=== PATIENT | male | born 1995 | race Asian ===

== ENCOUNTER → 2017-01-28 | Outpatient (CLI) | payer OTHER | LOC: BMCIMAGING 12:53 | PROVIDERS: ATTEND Emergency Medicine | DX: J18.9 Pneumonia, unspecified organism (principal) ==

== ENCOUNTER → 2017-02-09 | Outpatient (CLI) | payer OTHER | LOC: BMCIMAGING 09:05 | PROVIDERS: ATTEND Internal Medicine | DX: Z09 Encounter for follow-up examination after completed treatment for conditions other than malignant neoplasm (principal); J18.9 Pneumonia, unspecified organism ==

== ENCOUNTER 2017-02-12 16:10 | Emergency (ER) | payer OTHER ==
--- NOTE | 2017-02-12 17:14 | EDPHY ---
H & P Time Seen by Provider: 02/12/17 16:47 HPI/ROS: CHIEF COMPLAINT: Pneumonia HISTORY OF PRESENT ILLNESS: This patient is a 21 year old male complaining of fatigue and shortness of breath. Three weeks ago, he was diagnosed with pneumonia by x-ray. He took a 7 day course of amoxicillin beginning 01/24/17, and felt better last week. 3 days ago, he had a follow up x-ray which showed improvement. 2 days ago, he felt more fatigued again and developed chills, fever, and worsening cough, with accompanying shortness of breath and dizziness. Today, he visited his primary care physician and obtained a prescription for Levaquin. He took the first dose today. He presents this evening concerned regarding persistent fatigue, shortness of breath, and lightheadedness. The shortness of breath occurs during the episodes of coughing. He does not otherwise feel short of breath. he is feeling quite anxious regarding his symptoms and is concerned that he is not getting better. No nausea, vomiting, or other associated symptoms. REVIEW OF SYSTEMS: Constitutional: Fever, no chills Eyes: No visual changes ENT: No sore throat Respiratory: Cough, shortness of breath Cardiac: No chest pain Gastrointestinal: No nausea, no vomiting, no abdominal pain Genitourinary: No hematuria, no dysuria Musculoskeletal: No leg pain or swelling Skin: No rash Neurological: No headache, no numbness, no weakness Psychiatric: No depression Past Medical/Surgical History: 1. Pneumonia 2. Hernia repair. Social History: Lives in [place]. Originally from [place]. Nonsmoker. Host family at bedside. Smoking Status: Never smoked Physical Exam: General Appearance: Alert, anxious Eyes: Pupils equal and round, no conjunctival pallor or injection ENT, Mouth: Mucous membranes moist Neck: Normal inspection Respiratory: normal respiratory rate, becomes tachypneic occasionally, lungs are clear to auscultation Cardiovascular: Regular rate and rhythm Gastrointestinal: Abdomen is soft and nontender Neurological: A&O, nonfocal, normal gait Skin: Warm and dry, no rash Extremities: Nontender, no pedal edema Psychiatric: anxious Constitutional: Initial Vital Signs Temperature (C) 36.9 C 02/12/17 16:14 Heart Rate 89 02/12/17 16:14 Respiratory Rate 18 02/12/17 16:14 Blood Pressure 145/83 H 07/17/17 16:14 O2 Sat (%) 98 02/12/17 16:14 O2 Delivery Mode Room Air Allergies/Adverse Reactions: No Known Allergies Allergy (Verified 02/12/17 16:14) Home Medications: Medication Instructions Recorded NK [No Known Home Meds] 01/20/16 Medical Decision Making - Diagnostics EKG Interpretation: EKG interpreted by me reveals normal sinus rhythm, rate 63, early repolarization pattern. Imaging: I viewed and interpreted images myself ED Course/Re-evaluation: This patient presents with recurrent fever and worsening cough after recent diagnosis of pneumonia. Vital signs are normal, including oxygen saturation of 96% on room air. Labs and chest x-ray from earlier today reviewed. Infiltrate is still present, though improved from previous chest x-ray. Levaquin was started today. He also has significant anxiety surrounding the frequent cough and feeling that he is short of breath when he coughs. Ativan 0.5 mg IV given for anxiety. He felt much better after medication. His host family requests a prescription for Ativan for anxiety, as he is frequently anxious. Plan to discharge home in good condition. He will continue his Levaquin, and take ibuprofen or Tylenol as needed for fever. He will be given a prescription for take home Ativan as well as needed for anxiety. The patient is comfortable with this plan. Differential Diagnosis: The differential diagnosis for the patient's fever and shortness of breath included but was not limited to pneumonia, viral syndrome, pulmonary embolism and sepsis. - Data Points Medications Given: Discontinued Medications Sodium Chloride (Ns) 1,000 mls @ 0 mls/hr IV ONCE ONE; Wide Open PRN Reason: Protocol Stop: 02/12/17 17:21 Last Admin: 02/12/17 17:26 Dose: 1,000 mls Sodium Chloride (Ns) 1,000 mls @ 0 mls/hr IV ONCE ONE; Wide Open PRN Reason: Protocol Stop: 02/12/17 18:19 Last Admin: 02/12/17 18:28 Dose: 1,000 mls Lorazepam (Ativan Injection) 0.5 mg IVP EDNOW ONE Stop: 02/12/17 17:21 Last Admin: 02/12/17 17:26 Dose: 0.5 mg Lorazepam (Ativan 1 Mg Prepack#4) 1 btl TAKEHOME EDNOW ONE Stop: 02/12/17 19:16 Last Admin: 02/12/17 19:31 Dose: 1 btl Departure - Departure Disposition: Home, Routine, Self-Care Clinical Impression: Pneumonia Qualifiers: Pneumonia type: due to unspecified organism Laterality: left Lung location: unspecified part of lung Qualified Code(s): J18.9 - Pneumonia, unspecified organism Condition: Good Instructions: Lorazepam (By mouth), Pneumonia (ED) Additional Instructions: 1. Continue to take your Levaquin as prescribed. It is important to finish your entire course of antibiotics even if you are feeling better. 2. Take 650mg of Tylenol every 4-6 hours or 600mg of Ibuprofen every 6-8 hours for fever reduction. If fever is severe, you may take both of these medications. 3. Take Ativan 1/2 tablet every 12 hours as needed for anxiety. 4. Return to the ED for worsening of condition. Referrals: Kathy Valadez MD [Primary Care Provider] - As per Instructions Report Scribed for: Mally Medina Report Scribed by: Rachelle Lundberg Date of Report: 02/12/17 Time of Report: 17:10 Physician Review and Approval Statement: 02/12/17 17:09 Portions of this note were transcribed by a medical records field technician. I personally performed a history, physical exam, medical decision making, and confirmed accuracy of information the transcribed note.
[2017-02-12] MEDS ORDERED: NS 1,000 ML IV ONE ×2 (17:20→18:18)
[2017-02-12] MEDS ORDERED: LORazepam 2 MG/ML INJ IVP ONE (17:20)
--- NOTE | 2017-02-12 17:58 | CPEKG ---
Heart Rate: 63 RR Interval: 952 P-R Interval: 172 QRSD Interval: 100 QT Interval: 384 QTC Interval: 394 P Donnelly: 56 QRS Donnelly: 95 T Wave Donnelly: 57 EKG Severity - BORDERLINE ECG - EKG Impression: SINUS RHYTHM EKG Impression: Early repolarization Electronically Signed By: Mally Medina 12-Feb-2017 21:04:47
[2017-02-12] MEDS ORDERED: LORAZEPAM 1 MG PREPACK#4 BTL TAKEHOME ONE (19:15)
[2017-02-12 19:35] VITALS: BP 122/80; PULSE 95; RESP 16; TEMP 98.4; O2SAT 95
== END 2017-02-12 19:36 | disposition home or self-care (01) ==
DX: J18.9 Pneumonia, unspecified organism (principal); E86.9 Volume depletion, unspecified
CPT/HCPCS: 96374; J2060

== ENCOUNTER → 2017-02-12 | Outpatient (CLI) | payer OTHER | LOC: BMCIMAGING 10:29 | PROVIDERS: ATTEND Internal Medicine | DX: Z09 Encounter for follow-up examination after completed treatment for conditions other than malignant neoplasm (principal); J18.9 Pneumonia, unspecified organism ==

== ENCOUNTER 2017-03-12 19:35 | Emergency (ER) | payer OTHER ==
[2017-03-12 19:43] VITALS: TEMP 98.2
--- NOTE | 2017-03-12 20:35 | EDPHY ---
H & P Stated Complaint: c/o epigastic pain x3 weeks, saw urgent care 2 week ago dx with GERD Time Seen by Provider: 03/12/17 20:35 - Personal History Tetanus Vaccine Date: <10 years - Medical/Surgical History Hx Asthma: No Hx Chronic Respiratory Disease: No Hx Diabetes: No Hx Cardiac Disease: No Hx Renal Disease: No Hx Cirrhosis: No Hx Alcoholism: No Hx HIV/AIDS: No Hx Splenectomy or Spleen Trauma: No Other PMH: hx hernia repair, GERD - Social History Smoking Status: Never smoked Constitutional: Initial Vital Signs Temperature (C) 36.8 C 03/12/17 19:38 Heart Rate 80 03/12/17 19:38 Respiratory Rate 18 03/12/17 19:38 Blood Pressure 129/76 H 03/12/17 19:38 O2 Sat (%) 96 03/12/17 19:38 O2 Delivery Mode Room Air Allergies/Adverse Reactions: No Known Allergies Allergy (Verified 02/12/17 16:14) Home Medications: Medication Instructions Recorded Omeprazole 03/12/17 Medical Decision Making - Diagnostics Imaging Results: Imaging Impressions Chest X-Ray 03/12/17 20:46 Impression: 1. No pneumonia. 2. No acute pulmonary disease. Imaging: I viewed and interpreted images myself ED Course/Re-evaluation: CHIEF COMPLAINT: Head, chest, abdomen pain. HISTORY OF PRESENT ILLNESS: This patient is a 21 year old male complaining of stomach, chest, and head pain worsening over the last few days. He was diagnosed with pneumonia last month, and feels his cough is returning. He feels his lungs hurt on both sides, more on the right. He endorses yellow phlegm in his nose and throat. He visited an urgent care as well, but states they were unsure what was wrong, and he is unsure if he has ever fully recovered from his pneumonia. He has noted his entire upper body feels strange, and endorses occasional episodes of sweating. No chills, vomiting, diarrhea, or other associated symptoms. He plans to travel back to his hometown in [place] on Sunday, and would like to ensure he is healthy enough to travel. REVIEW OF SYSTEMS: A 10 point review of systems was performed and is negative with the exception of the elements mentioned in the history of present illness. PHYSICAL EXAM: HR, BP, O2 Sat, RR. Temp noted General Appearance: Alert, well hydrated, appropriate, and non-toxic appearing. Head: Atraumatic without scalp tenderness or obvious injury Eyes: Pupils equal, round, reactive to light and accommodation, EOMI, no trauma , no injection. Ears: Clear bilaterally, no perforation, normal landmarks Nose: Atraumatic, no rhinorrhea, clear. Throat: There is no erythema or exudates, no lesions, normal tonsils, mucus membranes moist. Neck: Supple, nontender, no lymphadenopathy. Respiratory: No retractions, no distress, no wheezes, and no accessory muscle use. Lungs are clear to auscultation bilaterally. Cardiovascular: Regular rate and rhythm, no murmurs, rubs, or gallops. Good capillary refill all extremities. Gastrointestinal: Midepigastric tenderness. Abdomen is soft, non-distended, no masses, no rebound, no guarding, no peritoneal signs. Musculoskeletal: Normal active ROM of all extremities, atraumatic. Neurological: Alert, appropriate, and interactive. Nonfocal neuro exam. Skin: No rashes, good turgor, no nodules on palpation. Past medical history: Pneumonia Past surgical history: Hernia repair Family history: Noncontributory Social history: Works as an Residential Case Manager. Visiting from [facility] in [place]. DIFFERENTIAL DIAGNOSIS: The differential diagnosis for the patient included but was not limited to pneumonia, bronchitis, viral syndrome, meningitis, and sepsis. MEDICAL DECISION MAKIN21 year old male presents with cough, headache, and abdominal pain. Plan for chest x-ray. Plan to administer 30mg IV Ketorolac and 2L IV NS for symptom relief. Chest x-ray unremarkable for acute respiratory processes. Labs unremarkable. Chest x-ray shows mild constipation. Plan to discharge home in good condition. He will be given a prescription for an inhaler and [facility]. He is safe to travel to [place] this week. Follow up and return precautions discussed. The patient is comfortable with this plan. - Data Points Laboratory Results: Laboratory Results 03/12/17 20:46 03/12/17 20:46 03/12/17 03/12/17 20:46 20:46 WBC 10.06 10^3/uL H 10^3/uL (3.80-9.50) RBC 6.05 10^6/uL 10^6/uL (4.40-6.38) Hgb 17.4 g/dL g/dL (13.7-17.5) Hct 51.2 % H % (40.0-51.0) MCV 84.6 fL fL (81.5-99.8) MCH 28.8 pg pg (27.9-34.1) MCHC 34.0 g/dL g/dL (32.4-36.7) RDW 12.4 % % (11.5-15.2) Plt Count 231 10^3/uL 10^3/uL (150-400) MPV 8.7 fL fL (8.7-11.7) Neut % (Auto) 63.3 % % (39.3-74.2) Lymph % (Auto) 24.5 % % (15.0-45.0) Dawson % (Auto) 7.5 % % (4.5-13.0) Eos % (Auto) 3.8 % % (0.6-7.6) Baso % (Auto) 0.5 % % (0.3-1.7) Nucleat RBC Rel Count 0.0 % % (0.0-0.2) Absolute Neuts (auto) 6.38 10^3/uL 10^3/uL (1.70-6.50) Absolute Lymphs (auto) 2.46 10^3/uL 10^3/uL (1.00-3.00) Absolute Monos (auto) 0.75 10^3/uL 10^3/uL (0.30-0.80) Absolute Eos (auto) 0.38 10^3/uL 10^3/uL (0.03-0.40) Absolute Basos (auto) 0.05 10^3/uL 10^3/uL (0.02-0.10) Absolute Nucleated RBC 0.00 10^3/uL 10^3/uL (0-0.01) Immature Gran % 0.4 % % (0.0-1.1) Immature Gran # 0.04 10^3/uL 10^3/uL (0.00-0.10) Sodium 137 mEq/L mEq/L (134-144) Potassium 4.0 mEq/L mEq/L (3.5-5.2) Chloride 97 mEq/L mEq/L (97-110) Carbon Dioxide 27 mEq/l mEq/l (22-31) Anion Gap 13 mEq/L mEq/L (8-16) BUN 17 mg/dL mg/dL (7-23) Creatinine 1.2 mg/dL mg/dL (0.7-1.3) Estimated GFR > 60 Glucose 83 mg/dL mg/dL (70-100) Calcium 10.2 mg/dL mg/dL (8.5-10.4) Total Bilirubin 0.5 mg/dL mg/dL (0.1-1.4) Conjugated Bilirubin 0.0 mg/dL mg/dL (0.0-0.5) Unconjugated Bilirubin 0.5 mg/dL mg/dL (0.0-1.1) AST 30 IU/L IU/L (17-59) ALT 46 IU/L IU/L (21-72) Alkaline Phosphatase 64 IU/L IU/L (38-126) Total Protein 8.4 g/dL H g/dL (6.3-8.2) Albumin 4.9 g/dL g/dL (3.5-5.0) Lipase 154 IU/L IU/L (23-300) Medications Given: Discontinued Medications Sodium Chloride (Ns) 1,000 mls @ 0 mls/hr IV EDNOW ONE; Wide Open PRN Reason: Protocol Stop: 03/12/17 20:47 Last Admin: 03/12/17 21:12 Dose: 1,000 mls Sodium Chloride (Ns) 1,000 mls @ 0 mls/hr IV EDNOW ONE; Wide Open PRN Reason: Protocol Stop: 03/12/17 20:47 Last Admin: 03/12/17 21:13 Dose: 1,000 mls Ketorolac Tromethamine (Toradol) 30 mg IVP EDNOW ONE Stop: 03/12/17 20:47 Last Admin: 03/12/17 21:13 Dose: 30 mg Departure - Departure Disposition: Home, Routine, Self-Care Clinical Impression: Persistent cough Constipation Qualifiers: Constipation type: unspecified constipation type Qualified Code(s): K59.00 - Constipation, unspecified Condition: Good Instructions: Constipation (ED), Acute Cough (ED) Additional Instructions: 1. Follow up with your primary care provider for continued management of your symptoms. 2. You are safe to fly to [place] on Sunday as planned. 3. Use your inhaler as prescribed as needed. 4. Return if you develop fever, chill, difficulty breathing, vomiting, or other worsening of condition. Referrals: Matteo Marcus MD [Primary Care Provider] - As per Instructions Report Scribed for: Ambrose Aguiar Report Scribed by: Rachelle Lundberg Date of Report: 03/12/17 Time of Report: 20:53
[2017-03-12] MEDS ORDERED: KETOROLAC 30 MG/1 ML SDV IVP ONE (20:46)
[2017-03-12] MEDS ORDERED: NS 1,000 ML IV ONE ×2 (20:46)
[2017-03-12 21:05] LABS: % IMMATURE GRANULYOCYTES 0.4 % (0.0-1.1); ABSOLUTE IMMATURE GRANULOCYTES 0.04 10^3/uL (0.00-0.10); ADD DIFF? NO; ADD MORPH? NO; ADD SCAN? NO; ATYPICAL LYMPHOCYTE FLAG 30 (0-99); FRAGMENT RBC FLAG 0 (0-99); HEMATOCRIT 51.2 % (40.0-51.0); HEMOGLOBIN 17.4 g/dL (13.7-17.5); LEFT SHIFT FLG 0 (0-99); LIPEMIA HEMOLYSIS FLAG 90 (0-99); MEAN CELL HEMOGLOBIN 28.8 pg (27.9-34.1); MEAN CELL VOLUME 84.6 fL (81.5-99.8); MEAN PLATELET VOLUME 8.7 fL (8.7-11.7); PLATELET CLUMPS FLAG 0 (0-99); PLATELET COUNT 231 10^3/uL (150-400); RED BLOOD CELL COUNT 6.05 10^6/uL (4.40-6.38); RED CELL DISTRIBUTION WIDTH 12.4 % (11.5-15.2)
[2017-03-12 21:07] LABS: ALANINE AMINOTRANSFERASE 46 IU/L (21-72); ALBUMIN 4.9 g/dL (3.5-5.0); ALKALINE PHOSPHATASE 64 IU/L (38-126); ANION GAP 13 mEq/L (8-16); ASPARTATE AMINOTRANSFERASE 30 IU/L (17-59); BILIRUBIN,TOTAL 0.5 mg/dL (0.1-1.4); BILIRUBIN-UNCONJUGATED 0.5 mg/dL (0.0-1.1); CALCIUM 10.2 mg/dL (8.5-10.4); CARBON DIOXIDE 27 mEq/l (22-31); CHLORIDE 97 mEq/L (97-110); CREATININE 1.2 mg/dL (0.7-1.3); GLOMERULAR FILTRATION RATE > 60; GLUCOSE 83 mg/dL (70-100); SODIUM 137 mEq/L (134-144); TOTAL PROTEIN 8.4 g/dL (6.3-8.2)
[2017-03-12 22:01] VITALS: RESP 16
[2017-03-12] MEDS ORDERED: ALBUTEROL INH PREPACK MDI TAKEHOME ONE (22:05)
[2017-03-12] MEDS ORDERED: LORAZEPAM 1 MG PREPACK#4 BTL TAKEHOME ONE ×2 (22:14→22:26)
[2017-03-12 22:49] VITALS: BP 124/79; PULSE 62; O2SAT 98
== END 2017-03-12 22:48 | disposition home or self-care (01) ==
DX: K59.00 Constipation, unspecified (principal); E86.9 Volume depletion, unspecified; R05 Cough
CPT/HCPCS: 96374; J1885

== ENCOUNTER → 2017-08-03 | Outpatient (CLI) | payer OTHER | LOC: BMCIMAGING 16:34 | PROVIDERS: ATTEND Internal Medicine | DX: R07.9 Chest pain, unspecified (principal) ==